=== PATIENT | female | born 1975 | race Caucasian/White ===

== ENCOUNTER 2019-01-27 09:53 | Emergency (ER) | payer OTHER ==
[~2019-01-27] VITALS: Ht 154.9 cm; Wt 97.5 kg
[~2019-01-27 09:53] MED LIST: CETI10SG1 PO; HYDR12.543 PO
[2019-01-27 10:15] VITALS: BP 139/98
--- NOTE | 2019-01-27 10:53 | NUR ---
PT BIB SELF C/O MECHANICAL FALL AT HOME; SLIPPED ON WET FLOOR LANDED ON LEFT BACK. LEFT LOWER BACK PAIN RADIATING LEFT THIGH AND LEFT KNEE AT 8/10 THAT INCREASES WITH WALKING OR BENDING KNEE. AMBULATORY WITH SLOW GUARDED GAIT. DENIES ANY OTHER INJURY---DENIES KO--NO DISCOLORATION OR SWELLING NOTED AT THIS TIME. VSS. ER TO SEE PT. HX--HTN RX--HCTZ 25MG PO
[2019-01-27] MEDS ORDERED: KETOROLAC 30 MG/ML VIAL IM ONE (11:15)
[2019-01-27 12:52] VITALS: BP 139/98
--- NOTE | 2019-01-27 12:52 | NUR ---
Patient discharged with v/s stable. Written and verbal after care instructions given and explained. Patient alert, oriented and verbalized understanding of instructions. Ambulatory with steady gait. All questions addressed prior to discharge. ID band removed. Patient advised to follow up with PMD. Rx of NAPROSYN AND VALIUM given. Patient educated on indication of medication including possible reaction and side effects. Opportunity to ask questions provided and answered.
== END 2019-01-27 12:52 | disposition home or self-care (01) ==
LOC: MED 09:53
DX: S83.92XA Sprain of unspecified site of left knee, initial encounter (principal); S39.012A Strain of muscle, fascia and tendon of lower back, initial encounter; I10 Essential (primary) hypertension; Z79.899 Other long term (current) drug therapy; Z88.0 Allergy status to penicillin; W01.0XXA Fall on same level from slipping, tripping and stumbling without subsequent striking against object, initial encounter; Y93.89 Activity, other specified; Y92.89 Other specified places as the place of occurrence of the external cause; Y99.8 Other external cause status
CPT/HCPCS: 72100; 73562; 81025; 96372; 99283; J1885

== ENCOUNTER 2019-05-19 20:59 | Emergency (ER) | payer OTHER ==
[~2019-05-19] VITALS: Ht 154.9 cm; Wt 94.8 kg
[2019-05-19 21:09] VITALS: BP 104/53
--- NOTE | 2019-05-20 00:05 | NUR ---
PT CALLED. NO RESPONSE.
--- NOTE | 2019-05-20 00:10 | NUR ---
PT CALLED. NO RESPONSE.
--- NOTE | 2019-05-20 00:15 | NUR ---
PT CALLED. NO RESPONSE. PT LWBS AT [phone].
== END 2019-05-20 00:05 | disposition left against medical advice (07) ==
LOC: MED 20:59
DX: K59.00 Constipation, unspecified (principal); K62.5 Hemorrhage of anus and rectum; Z53.21 Procedure and treatment not carried out due to patient leaving prior to being seen by health care provider